=== PATIENT | male | born 1995 | race Caucasian/White ===

== ENCOUNTER 2016-12-27 19:57 | Emergency (ER) | payer OTHER ==
[2016-12-27] MEDS ORDERED: Lidocaine 1% 20 ML MDV INJECT ONE (20:07)
[2016-12-27] MEDS ORDERED: Diphtheria,Pertussis(Acell),Tetanus Vaccine 0.5 ML Syringe IM ONE (20:08)
[2016-12-27] MEDS ORDERED: Bacitracin Oint 1 GM U/D Packet TOP ONE (20:08)
--- NOTE | 2016-12-27 20:09 | EDM.PDOC ---
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 Seen by Provider: 12/27/16 20:05 Source: Reports: Patient History Limitations: Reports: No limitations - History of Present Illness INITIAL COMMENTS - FREE TEXT/NARRATIVE: HISTORY AND PHYSICAL: [21-year-old male presenting after having been grinding at work accidentally hit his left leg [id number] and has a laceration] History of Present Illness: [Half hour prior to coming to the emergency room patient received the injury He does not recall when his last tetanus vaccination was given] Review of Systems: As per history of present illness and below otherwise all systems reviewed and negative. Past medical history: As per history of present illness and as reviewed below otherwise noncontributory. Surgical history: As per history of present illness and as reviewed below otherwise noncontributory. Social history: No reported history of drug or alcohol abuse. Family history: As per history of present illness and as reviewed below otherwise noncontributory. Physical exam: Alert oriented male to questions appropriate HEENT: Atraumatic, normocehpalic, pupils reactive, negative for conjunctival pallor or scleral icterus, mucous membranes moist, throat clear, neck supple, nontender, trachea midline. Lungs: Clear to auscultation, breath sounds equal bilaterally, chest non tender. Heart: S1S2, regular, negative for clicks, rubs, or JVD. Abdomen: Soft, nondistended, nontender. Negative for masses or hepatossplenmegaly. Negative for costovertebral tenderness. Pelvis: Stable nontender. Genitourinary: Deferred. Rectal: Deferred Extremities: 2.7 cm laceration above the knee, shallow depth, negative for cords or calf pain. Neurovascular unremarkable. Neuro: Awake, alert, oriented. Cranial nerves II through XII unremarkable. Cerebellum unremarkable. Motor and sensory unremarkable throughout. Exam nonfocal. Diagnostics: [] Therapeutics: [Sutures the edges were well approximated patient tolerated all procedures well] Impression: [] Laceration with repair Plan: [Sutures to be removed in 10 days] Definitive disposition and diagnosis as appropriate pending reevaluation and review of above. - Related Data Allergies Allergy/AdvReac Type Severity Reaction Status Date / Time coconut Allergy Rash Verified 12/27/16 20:08 shellfish derived Allergy Rash Verified 12/27/16 20:02 Home Meds: Ambulatory Orders Medication Instructions Recorded Confirmed . [No Known Home Meds] 12/27/16 12/27/16 ED ROS GENERAL - Review of Systems Review Of Systems: ROS reveals no pertinent complaints other than HPI. ED EXAM, SKIN/RASH Exam: See Below (See dictation) ED SKIN PROCEDURES - Laceration/Wound Repair Left Anterior Midline Leg Lac/wound length in cm: 2.7 Appearance: subcutaneous, clean Distal NVT: neuro & vascular intact, no tendon injury Anesthetic type: local Local anesthesia - Lidocaine (Xylocaine): 1% plain Local anesthetic volume: 4cc Skin prep: chlorhexidine (hibiciens), saline Exploration/Debridement/Repair: wound explored, in a bloodless field, explored to base Closed with: sutures Suture size: 3-0 # of sutures: 5 Suture type: nylon, interrupted, simple Drain placement: No Sterile dressing applied: nurse Tetanus status addressed: Yes Complications: No Course - Vital Signs Last Recorded V/S: Last Vital Signs Temp 36.3 C 12/27/16 20:03 Pulse 72 12/27/16 20:03 Resp 18 12/27/16 20:03 BP 127/75 12/27/16 20:03 Pulse Ox 96 12/27/16 20:03 - Orders/Labs/Meds Orders: Active Orders 24 hr Category Date Time Status Vaccines to be Administered [RC] PER UNIT ROUTINE Care 12/27/16 20:08 Active Meds: Medications Discontinued Medications Generic Name Dose Route Start Last Admin Trade Name Lexa PRN Reason Stop Dose Admin Bacitracin 1 dose 12/27/16 20:08 12/27/16 20:15 Bacitracin Oint 1 Gm TOP 12/27/16 20:09 1 dose ONETIME ONE Administration Diphtheria/Tetanus/Acell Pertussis 0.5 ml 12/27/16 20:08 12/27/16 20:14 Adacel IM 12/27/16 20:09 0.5 ml .ONCE ONE Administration Lidocaine HCl 20 ml 12/27/16 20:07 12/27/16 20:15 Xylocaine 1% INJECT 12/27/16 20:08 3 ml ONETIME ONE Administration Departure - Departure Time of Disposition: 20:27 Disposition: Home, Self-Care 01 Condition: good Clinical Impression: Laceration Instructions: Laceration Care, Adult, [id number] Forms: ED Department Discharge Additional Instructions: The following information is given to patients seen in the emergency department who are being discharged to home. This information is to outline your options for follow-up care. We provide all patients seen in our emergency department with a follow-up referral. The need for follow-up, as well as the timing and circumstances, are variable depending upon the specifics of your emergency department visit. If you don't have a primary care physician on staff, we will provide you with a referral. We always advise you to contact your personal physician following an emergency department visit to inform them of the circumstance of the visit and for follow-up with them and/or the need for any referrals to a consulting specialist. The emergency department will also refer you to a specialist when appropriate. This referral assures that you have the opportunity for followup care with a specialist. All of these measure are taken in an effort to provide you with optimal care, which includes your followup. Under all circumstances we always encourage you to contact your private physician who remains a resource for coordinating your care. When calling for followup care, please make the office aware that this follow-up is from your recent emergency room visit. If for any reason you are refused follow-up, please contact the [facility] emergency department at and asked to speak to the emergency department charge nurse. Signs of infection include heat redness swelling pustular exudate Should any of these signs occur return immediately for reevaluation sutures to be removed in 10 days - My Orders Last 24 Hours: My Active Orders 12/27/16 20:08 Vaccines to be Administered [RC] PER UNIT ROUTINE - Assessment/Plan Last 24 Hours: My Active Orders 12/27/16 20:08 Vaccines to be Administered [RC] PER UNIT ROUTINE
[2016-12-27 21:07] VITALS: BP 115/70
== END 2016-12-27 20:36 | disposition home or self-care (01) ==
LOC: MW.ED 19:57
DX: S71.112A Laceration without foreign body, left thigh, initial encounter (principal); Z23 Encounter for immunization; W31.9XXA Contact with unspecified machinery, initial encounter; Y99.0 Civilian activity done for income or pay
CPT/HCPCS: 12002; 12004; 90471; 90715; 99282; 99282-25